=== PATIENT | male | born 1970 | race Caucasian/White ===

== ENCOUNTER 2019-06-07 10:34 | Emergency (ER) | payer SELFPAY ==
[~2019-06-07] VITALS: Ht 177.8 cm; Wt 107.0 kg
[~2019-06-07 10:34] MED LIST: ALBUTEROL0.09 MG/A2 IH; ZITHROMAX Z PA250 MG PO
[2019-06-07 10:35] VITALS: BP 138/98
[2019-06-07] MEDS ORDERED: PREDNISONE20 M1 PO (11:22)
== END 2019-06-07 11:35 | disposition home or self-care (01) ==
LOC: ED 10:34
DX: L50.9 Urticaria, unspecified (principal); Z88.0 Allergy status to penicillin